=== PATIENT | male | born 1950 | race Caucasian/White ===

== ENCOUNTER → 2016-12-28 | Outpatient (CLI) | payer BC ==
[~2016-12-28] MED LIST: ARTHITIS MED; FERR1TAB14 PO; HYDR-906 PO; LISI-313 PO; NAPR1TAB PO; RIVA15TA PO; RIVA20TA PO; VIT1CAPS10 PO; VITA1CAP PO; [UNRECOGNIZED DRUG - CODE] PO; [UNRECOGNIZED DRUG - CODE] PO
[2016-12-28 11:29] LABS: BASOPHILS % 0.5 % (0.0-2.0); EOSINOPHILS # 0.1 10^3/ul (0.0-0.5); EOSINOPHILS % 1.9 % (0.0-7.0); HEMATOCRIT 37.3 % (42.0-52.0); HEMOGLOBIN 12.4 g/dl (14.0-18.0); LYMPHOCYTES # 1.7 10^3/ul (0.8-2.9); LYMPHOCYTES % 26.5 % (15.0-51.0); MEAN CORPUSCULAR HEMOGLOBIN 27.9 pg (29.0-33.0); MEAN CORPUSCULAR HGB CONC 33.2 g/dl (32.0-37.0); MEAN CORPUSCULAR VOLUME 83.8 fl (82.0-101.0); MEAN PLATELET VOLUME 10.7 fl (7.4-10.4); MONOCYTE # 0.9 10^3/ul (0.3-0.9); MONOCYTES % 13.9 % (0.0-11.0); NEUTROPHIL # 3.6 10^3/ul (1.6-7.5); NEUTROPHILS % 56.9 % (39.0-77.0); PLATELET COUNT 184 10^3/UL (140-415); RED BLOOD COUNT 4.45 10^6/ul (4.70-6.10); RED CELL DISTRIBUTION WIDTH 15.8 % (11.5-14.5); WHITE BLOOD COUNT 6.3 10^3/ul (4.8-10.8)
[2016-12-28 11:38] LABS: ADD UMIC YES; UR ASCORBIC ACID NEGATIVE (NEGATIVE); UR BILIRUBIN (Dip) NEGATIVE (NEGATIVE); UR BLOOD (Dip) 1+ mg/dL (NEGATIVE); UR CLARITY CLEAR (CLEAR); UR COLOR AMBER (YELLOW); UR GLUCOSE (Dip) NEGATIVE (NEGATIVE); UR KETONES (Dip) NEGATIVE (NEGATIVE); UR LEUKOCYTE ESTERASE (Dip) NEGATIVE Leu/ul (NEGATIVE); UR NITRITE (Dip) NEGATIVE (NEGATIVE); UR RBC 23 /HPF (0-5); UR SPECIFIC GRAVITY (Dip) 1.019 (1.003-1.030); UR TOTAL PROTEIN (Dip) 2+ mg/dl (NEGATIVE); UR UROBILINOGEN (Dip) 1+ mg/dL (NEGATIVE)
[2016-12-28 11:47] LABS: IRON 49 ug/dl (35-150)
[2016-12-28 11:57] LABS: TOTAL IRON BINDING CAPACITY 396 ug/dl (241-421)
[2016-12-28 12:45] LABS: PROSTATE SPECIFIC ANTIGEN 0.8 ng/ml (0.0-4.0)
[2016-12-28 12:49] LABS: FERRITIN 12.5 ng/ml (11.1-264.0)
[2016-12-28 13:07] LABS: ALANINE AMINOTRANSFERASE 35 IU/L (13-69); ALBUMIN/GLOBULIN RATIO 1.14; ALKALINE PHOSPHATASE 72 IU/L (42-121); ANION GAP 16 (8-16); ASPARTATE AMINO TRANSFERASE 29 IU/L (15-46); BILIRUBIN,INDIRECT 0.8 mg/dl (0-1.1); BILIRUBIN,TOTAL 0.8 mg/dl (0.2-1.3); BLOOD UREA NITROGEN 9 mg/dl (7-20); CALCIUM 9.3 mg/dl (8.4-10.2); CARBON DIOXIDE 28 mmol/L (21-31); CHLORIDE 104 mmol/L (97-110); CHOL/HDL RATIO 2.9 RATIO; CHOLESTEROL 167 mg/dl (100-200); CREATININE 0.75 mg/dl (0.61-1.24); GLUCOSE 124 mg/dl (70-220); HDL CHOLESTEROL 57 mg/dl (30-78); POTASSIUM 3.9 mmol/L (3.5-5.1); SODIUM 144 mmol/L (135-144); TOTAL PROTEIN 7.5 g/dl (6.1-8.1); TRIGLYCERIDES 74 mg/dl (0-149)
[2016-12-28 13:20] LABS: FOLATE > 20.0 ng/ml (2.8-20.0)
== END | disposition home or self-care (01) ==
LOC: LAB 11:02
PROVIDERS: ATTEND General Practice
DX: Z00.00 Encounter for general adult medical examination without abnormal findings (principal)
CPT/HCPCS: 80053; 80061; 81001; 82728; 82746; 83540; 84153; 84154; 84436; 84443; 84560; 85025

== ENCOUNTER 2016-12-29 20:27 | Inpatient (IN) | payer BC ==
[~2016-12-29] VITALS: Ht 162.6 cm; Wt 123.2 kg
[~2016-12-29 20:27] MED LIST changes: -FERR1TAB14 PO; -HYDR-906 PO; -LISI-313 PO; -RIVA15TA PO; -RIVA20TA PO
[2016-12-29 20:38] VITALS: Ht 162.6 cm; Wt 123.2 kg
--- NOTE | 2016-12-29 21:01 | ERD ---
ER Documentation Chief Complaint Chief Complaint R ankle pain/swelling since sun (hx of vein insufficiency) code green pt (JACQUELIN PARKS) HPI 66-year-old male who presents emergency department for right ankle pain and swelling since Sunday. Stated that his history of vein insufficiency. On triage, states code green. Added that he has right calf tenderness and tenderness to right ankle and right foot. Denies any headache, dizziness, blurry vision, neck pain, shoulder pain, chest pain, difficulty breathing when lying flat, coughing, abdominal pain, nausea, vomiting, constipation, diarrhea, loss of bowel bladder control, urinary symptoms, recent long travel, recent travel, recent exposure to any illness, recent antibiotic use in the last 3 months, numbness or tingling sensation, fever, chills. No known drug allergies. No past medical history. No surgeries. Does not take any prescription medication at home. Social: Works at [employer]. Occasional drinks alcoholic beverages. Denies smoking cigarettes, use of illegal drugs. (JACQUELIN PARKS) ROS All systems reviewed and are negative except as per history of present illness. (JACQUELIN PARKS) Medications Home Meds Reported Medications Naproxen/Esomeprazole Mag (Vimovo 500-20 Mg Tablet) 1 Each Tbmp.12hr, 1 EACH PO NEEDED 06/16/11 [Arthitis Med] No Conflict Check 05/03/11 Multivits W-Fe,Other Min (Central Omid For Seniors) 1 Tab Tablet, 1 TAB PO DAILY 05/03/11 Vitamin E Acetate (E-400) 400 Unit Capsule, 400 UNIT PO DAILY 05/03/11 Vitamin B Complex (B Complex) 1 Cap Capsule, 1 CAP PO DAILY 05/03/11 Vit A/Vit C/Vit E/Zinc/Copper (Preservision Areds Softgel) 1 Cap Capsule, 1 CAP PO 05/03/11 Allergies Allergies: Coded Allergies: No Known Allergies (Verified Allergy, Unknown, 09/28/15) PMhx/Soc Medical and Surgical Hx: pt denies Medical Hx History of Surgery: Yes (PT HAS RIGHT EYE SURGERY) Anesthesia Reaction: No Hx Neurological Disorder: No Hx Respiratory Disorders: No Hx Cardiac Disorders: No Hx Psychiatric Problems: No Hx Miscellaneous Medical Probl: No Hx Alcohol Use: No Hx Substance Use: No Hx Tobacco Use: No (JACQUELIN PARKS) Physical Exam Vitals Vital Signs Date Time Temp Pulse Resp B/P Pulse Ox O2 Delivery O2 Flow Rate FiO2 12/30/16 02:34 98.1 67 19 169/98 98 Room Air 12/29/16 23:03 99.3 69 20 159/84 96 Room Air 12/29/16 20:38 98.2 74 20 181/84 98 (RANDY HOLMAN DO) Physical Exam Const: [] Head: Atraumatic Eyes: Normal Conjunctiva ENT: Normal External Ears, Nose and Mouth. Neck: Full range of motion..~ No meningismus. Resp: Clear to auscultation bilaterally Cardio: Regular rate and rhythm, no murmurs Abd: Soft, non tender, non distended. Normal bowel sounds Skin: No petechiae or rashes Back: No midline or flank tenderness Ext: No cyanosis, or edema. Left lower extremity unremarkable. Right lower extremity: Right knee is no obvious deformity/swelling/tenderness/ discoloration. Right calf is swollen that extends down to right ankle and right foot. Right calf is tender to palpation. Right ankle has no deformity but has tenderness to palpation. Nonpitting edema on right lower extremity. Pedal pulse is good. Circulation and sensation is intact. Patient ambulated to the bathroom without difficulty. Neur: Awake and alert Psych: Normal Mood and Affect (JACQUELIN PARKS) Result Diagram: 01/01/1742801/01/17428 Results 24 hrs Laboratory Tests Test 12/29/16 21:10 White Blood Count 7.610^3/ul Red Blood Count 4.1510^6/ul Hemoglobin 11.7g/dl Hematocrit 34.8% Mean Corpuscular Volume 83.9fl Mean Corpuscular Hemoglobin 28.2pg Mean Corpuscular Hemoglobin Concent 33.6g/dl Red Cell Distribution Width 15.5% Platelet Count 45947^3/UL Mean Platelet Volume 10.2fl Neutrophils % 50.9% Lymphocytes % 31.8% Monocytes % 13.7% Eosinophils % 2.9% Basophils % 0.4% Nucleated Red Blood Cells % 0.0/100WBC Neutrophils # 3.910^3/ul Lymphocytes # 2.410^3/ul Monocytes # 1.010^3/ul Eosinophils # 0.210^3/ul Basophils # 0.010^3/ul Nucleated Red Blood Cells # 0.010^3/ul Prothrombin Time 13.0Sec Prothrombin Time Ratio 1.0 INR International Normalized Ratio 0.98 Activated Partial Thromboplast Time 30.3Sec D-Dimer 6883.77ng/ml D-Dimer Comment Sodium Level 143mmol/L Potassium Level 3.6mmol/L Chloride Level 103mmol/L Carbon Dioxide Level 27mmol/L Anion Gap 17 Blood Urea Nitrogen 16mg/dl Creatinine 0.83mg/dl Glucose Level 112mg/dl Calcium Level 9.1mg/dl Total Bilirubin 0.5mg/dl Direct Bilirubin 0.00mg/dl Indirect Bilirubin 0.5mg/dl Aspartate Amino Transf (AST/SGOT) 32IU/L Alanine Aminotransferase (ALT/SGPT) 38IU/L Alkaline Phosphatase 68IU/L Troponin I < 0.012ng/ml B-Type Natriuretic Peptide 178PG/ML Total Protein 7.4g/dl Albumin 3.9g/dl Globulin 3.50g/dl Albumin/Globulin Ratio 1.11 Current Medications Medications (Trade) Dose Ordered Sig/Aaron Route PRN Reason Start Time Stop Time Status Last Admin Dose Admin Acetaminophen/ Hydrocodone Bitart ([place] (10325)) 1 tab ONCE ONCE PO 12/29/16 22:00 12/29/16 22:01 DC 12/29/16 22:09 Enoxaparin Sodium (Lovenox) 77 mg ONCE SC 12/29/16 22:30 12/30/16 13:23 DC 12/29/16 22:55 Ondansetron HCl (Zofran Inj) 4 mg BRIDGE ORDER PRN IV NAUSEA AND/OR VOMITING 12/30/16 03:00 12/30/16 13:14 DC Acetaminophen (Tylenol Tab) 650 mg ER BRIDGE PRN PO MILD PAIN/FEVER 12/30/16 03:00 12/30/16 13:14 DC (RANDY HOLMAN DO) Procedures/MDM 66-year-old male who presents emergency department for right ankle pain and swelling since Sunday. Stated that his history of vein insufficiency. On triage, states code green. Added that he has right calf tenderness and tenderness to right ankle and right foot. Denies any headache, dizziness, blurry vision, neck pain, shoulder pain, chest pain, difficulty breathing when lying flat, coughing, abdominal pain, nausea, vomiting, constipation, diarrhea, loss of bowel bladder control, urinary symptoms, recent long travel, recent travel, recent exposure to any illness, recent antibiotic use in the last 3 months, numbness or tingling sensation, fever, chills. No known drug allergies. No past medical history. No surgeries. Does not take any prescription medication at home. Social: Works at [employer]. Occasional drinks alcoholic beverages. Denies smoking cigarettes, use of illegal drugs. Physical exam: Lung sounds are clear to auscultation. Regular rate and rhythm of the heart. Left lower extremity unremarkable. Right lower extremity: Right knee is no obvious deformity/swelling/tenderness/discoloration. Right calf is swollen that extends down to right ankle and right foot. Right calf is tender to palpation. Right ankle has no deformity but has tenderness to palpation. Nonpitting edema on right lower extremity. Pedal pulse is good. Circulation and sensation is intact. No active bleeding. Patient ambulated to the bathroom without difficulty. Patient agreed with the diagnostic test, treatment, plan of care. Venous Doppler ultrasound of the right lower extremity: Positive for DVT with thrombus extending from the proximal superficial femoral vein into the calf. This result was relayed to me by Dr. Juanjose Moctezuma, radiologist. Blood works: Reviewed. Treatment: [place] p.o. IV insertion. Telemetry/cardiac monitoring. Lovenox EKG: Normal sinus rhythm with ventricular rate of 70 bpm. No STEMI. Differential diagnosis: DVT versus thrombophlebitis versus cellulitis versus fracture versus contusion versus sprain versus dependent edema Final diagnosis: DVT Case was discussed with emergency room supervising physician, Dr. Randy Holman who agreed in my medical decision making to admit the patient. He also stated that he will process the admission. (JACQUELIN PARKS) This patient has an unprovoked extensive DVT. I believe he needs to be admitted for a vascular and possibly a hematology eval as well as initiation of proper treatment. He was given lovenox in ER. I spoke with Dr. Burnett who will be admitting. (RANDY HOLMAN DO) Departure Diagnosis: Primary Impression: DVT, lower extremity Condition: Stable JACQUELIN PARKS Dec 29, 2016 21:01 RANDY HOLMAN DO Jan 01, 2017 09:08
[2016-12-29 21:21] LABS: BASOPHILS % 0.4 % (0.0-2.0); EOSINOPHILS # 0.2 10^3/ul (0.0-0.5); EOSINOPHILS % 2.9 % (0.0-7.0); HEMATOCRIT 34.8 % (42.0-52.0); HEMOGLOBIN 11.7 g/dl (14.0-18.0); LYMPHOCYTES # 2.4 10^3/ul (0.8-2.9); LYMPHOCYTES % 31.8 % (15.0-51.0); MEAN CORPUSCULAR HEMOGLOBIN 28.2 pg (29.0-33.0); MEAN CORPUSCULAR HGB CONC 33.6 g/dl (32.0-37.0); MEAN CORPUSCULAR VOLUME 83.9 fl (82.0-101.0); MEAN PLATELET VOLUME 10.2 fl (7.4-10.4); MONOCYTES % 13.7 % (0.0-11.0); NEUTROPHIL # 3.9 10^3/ul (1.6-7.5); NEUTROPHILS % 50.9 % (39.0-77.0); PLATELET COUNT 173 10^3/UL (140-415); RED BLOOD COUNT 4.15 10^6/ul (4.70-6.10); RED CELL DISTRIBUTION WIDTH 15.5 % (11.5-14.5); WHITE BLOOD COUNT 7.6 10^3/ul (4.8-10.8)
[2016-12-29 21:35] LABS: INR 0.98
[2016-12-29 21:36] LABS: PARTIAL THROMBOPLASTIN TIME 30.3 Sec (25.0-35.0)
[2016-12-29 21:40] LABS: ALANINE AMINOTRANSFERASE 38 IU/L (13-69); ALBUMIN 3.9 g/dl (3.3-4.9); ALBUMIN/GLOBULIN RATIO 1.11; ALKALINE PHOSPHATASE 68 IU/L (42-121); ANION GAP 17 (8-16); ASPARTATE AMINO TRANSFERASE 32 IU/L (15-46); BILIRUBIN,INDIRECT 0.5 mg/dl (0-1.1); BILIRUBIN,TOTAL 0.5 mg/dl (0.2-1.3); BLOOD UREA NITROGEN 16 mg/dl (7-20); CALCIUM 9.1 mg/dl (8.4-10.2); CARBON DIOXIDE 27 mmol/L (21-31); CHLORIDE 103 mmol/L (97-110); CREATININE 0.83 mg/dl (0.61-1.24); GLUCOSE 112 mg/dl (70-220); POTASSIUM 3.6 mmol/L (3.5-5.1); SODIUM 143 mmol/L (135-144); TOTAL PROTEIN 7.4 g/dl (6.1-8.1)
--- NOTE | 2016-12-29 21:47 | RADRPT ---
PROCEDURE: US venous right lower extremity CLINICAL INDICATION: Right lower extremity swelling. TECHNIQUE: Multiple longitudinal and transverse images of the right lower extremity veins were obta ined with solis scale and color Doppler imaging. The calf veins were interrogated as well. COMPARISON: None available. FINDINGS: Common femoral vein: Normal flow. Compressible and augmentable. Proximal superficial femoral vein: Partially occlusive thrombus. Mid superficial femoral vein: Partially occlusive thrombus. Distal superficial femoral vein: Partially occlusive thrombus. Popliteal vein: Occlusive thrombus. Calf veins: Partially occlusive thrombus. IMPRESSION: 1. Positive for DVT with thrombus extending from the proximal superficial femoral vein into the ca lf. CRITICAL RESULTS: These findings discussed with Faiza Figueroa in the ED at 2144 hours on 12/29/2016 . RPTAT: HLBP .Juanjose Moctezuma MD, Date Time Electronically viewed and signed by .Juanjose Moctezuma MD, on 12/29/2016 21:47 .P/
[2016-12-29 21:51] LABS: B-TYPE NATRIURETIC PEPTIDE 178 PG/ML (0-125)
[2016-12-29 21:54] LABS: TROPONIN-I < 0.012 ng/ml (0.00-0.12)
[2016-12-29] MEDS ORDERED: HYDROCODONE/APAP (10/325) TAB PO ONE (22:00)
[2016-12-29 22:13] LABS: D-DIMER 6883.77 ng/ml (<460)
[2016-12-29] MEDS ORDERED: ENOXAPARIN 100 MG/ML SYG SC SCH (22:30)
[2016-12-30 02:34] VITALS: TEMP 98.1
[2016-12-30] MEDS ORDERED: ACETAMINOPHEN 325 MG TAB PO PRN ×2 (03:00→04:00)
[2016-12-30] MEDS ORDERED: ONDANSETRON 4 MG INJ IV PRN ×2 (03:00→04:00)
--- NOTE | 2016-12-30 03:59 | HP ---
Date/Time of Note Date/Time of Note DATE: 12/30/16 TIME: 03:42 Assessment/Plan VTE Prophylaxis VTE Prophylaxis Intervention: LMWH Assessment/Plan Chief Complaint/Hosp Course This is a 66-year-old male being admitted to the [facility] floor for: #1 acute DVT: Ultrasound positive for DVT of the superficial femoral vein extending to the calf. At the current time will start the patient on Lovenox subcu 1 mg/kg twice daily. Due to the extent of the clot, we will consult vascular surgery for any further recommendations. This has been his first DVT. He does state that his mother has a history of clots. Consider ordering Coagulation studies as an outpatient once his treatment is completed. We will need to discuss with vascular surgery and/or hematology regarding anticoagulation treatment at home with either Coumadin or NOAC. #2 elevated blood pressure: We will monitor blood pressures to assess for undiagnosed hypertension. At the current time will provide as needed hydralazine for systolic blood pressure greater than 180. #3 BMI 29.2: Check A1c, TSH, lipid panel #4DVT and GI prophylaxis: Lovenox, no GI prophylaxis indicated Further treatment strategy will be provided as per the clinical course Problems: HPI/ROS Admit Date/Time Admit Date/Time Hx of Present Illness Chief complaint: Right leg pain This is a 66-year-old male who presents emergency department for right ankle pain and swelling since Sunday. Today while at work at [employer] he had pain in his leg and snow marie was called. He states that he has pain from his calf down to his ankle. He denies any numbness or tingling. Denies any cyanosis of his toes. He denies any recent travel or recent surgeries. Of note patient states that his mother does have a history of blood clots as well. Patient has not had a blood clot before in his life. Denies any headache, dizziness, blurry vision, neck pain, shoulder pain, chest pain, difficulty breathing when lying flat, coughing, abdominal pain, nausea, vomiting, constipation, diarrhea, loss of bowel bladder control, urinary symptoms, recent long travel, recent travel, recent exposure to any illness, recent antibiotic use in the last 3 months, numbness or tingling sensation, fever, chills. Allergies: NKDA Medications: See DICKSON ROS Const: As per HPI Eyes : No pain discharge or redness or change in visual acuity ENT: No pain, sore throat, congestion, congestion, dysphagia or discharge Respiratory: No shortness of breath, cough, sputum, wheezing, or pleuritic pain Cardiovascular: No chest pain, palpitation, PND, or edema GI : no change in appetite, abdominal pain, nausea, vomiting, diarrhea, constipation, or change in the color his stool Genitourinary: No dysuria, hematuria, flank pain , discharge or CVA tenderness Musculoskeletal: As per HPI Skin: No rash, bruising or hives Neuro: No headache, dizziness, syncope, seizure, focal weakness Endocrine: No polyuria, polydipsia, temperature intolerance Psych: No hallucination, depression, anxiety or suicidal ideation PMH/Family/Social Past Medical History Medical History: no pertinent history Past Surgical History Right cataract surgery Family History Significant Family History: other (Blood clots: Mother) Social History Alcohol Use: occasionally Smoking Status: Never smoker Drug Use: none Exam/Review of Systems Vital Signs Vitals Vital Signs Date Time Temp Pulse Resp B/P Pulse Ox O2 Delivery O2 Flow Rate FiO2 12/30/16 02:34 98.1 67 19 169/98 98 Room Air Exam Exam General: Is a well-developed male lying in bed in no acute distress HEENT: Atraumatic, normocephalic. The pupils are equal, round and reactive. Extraocular motor are intact Neck: Supple with full range of motion. No rigidity or meningismus Chest: Nontender Lungs: Clear to auscultation bilaterally no crackles rales or wheezing Heart: Normal S1-S2, Regular rhythm and rate. No murmur, S3, or S4 Abdomen: Soft , nontender, nondistended , bowel sounds are present. No guarding no rebound tenderness , No masses or organomegaly. No costovertebral temporal angle mass Extremities: Mild swelling of the right lower extremity, tenderness to palpation of the right calf and ankle, mild erythema noted at the medial ankle area Neurologic: Normal mental status, speech normal, cranial nerves II through XII are intact, motor and sensory are intact, no focal weakness Vascular: 2+ DP pulses bilateral lower extremities Additional Comments PROCEDURE: US venous right lower extremity CLINICAL INDICATION: Right lower extremity swelling. TECHNIQUE: Multiple longitudinal and transverse images of the right lower extremity veins were obtained with solis scale and color Doppler imaging. The calf veins were interrogated as well. COMPARISON: None available. FINDINGS: Common femoral vein: Normal flow. Compressible and augmentable. Proximal superficial femoral vein: Partially occlusive thrombus. Mid superficial femoral vein: Partially occlusive thrombus. Distal superficial femoral vein: Partially occlusive thrombus. Popliteal vein: Occlusive thrombus. Calf veins: Partially occlusive thrombus. IMPRESSION: 1. Positive for DVT with thrombus extending from the proximal superficial femoral vein into the calf. CRITICAL RESULTS: These findings discussed with Jacquelin Figueroa in the ED at 2144 hours on 12/29/2016. RPTAT: HLBP .Juanjose Moctezuma MD, Date Time Electronically viewed and signed by .Juanjose Moctezuma MD, on 12/29/2016 21:47 .P/ CC: JACQUELIN FIGUEROA Labs Result Diagram: 12/29/16210912/29/162109 Medications Medications Current Medications Enoxaparin Sodium (Lovenox) 77 mg ONCE SC Last administered on 12/29/16t 22:55 ; Admin Dose 77 MG; Start 12/29/16 at 22:30 NATHALIA LOTT Dec 30, 2016 03:58
[2016-12-30] MEDS ORDERED: DOCUSATE SODIUM 100 MG CAP PO PRN (04:00)
[2016-12-30] MEDS ORDERED: HYDROCODONE/APAP (5/325) TAB PO PRN (04:00)
[2016-12-30] MEDS ORDERED: NACL 0.9% 3 ML SYG IV SCH (04:00)
[2016-12-30] MEDS ORDERED: BISACODYL (EC) 5 MG TAB PO PRN (04:00)
[2016-12-30 04:33] VITALS: PULSE 65
[2016-12-30 05:36] VITALS: BP 156/75; RESP 20
[2016-12-30 06:23] LABS: BASOPHILS % 0.3 % (0.0-2.0); EOSINOPHILS # 0.2 10^3/ul (0.0-0.5); EOSINOPHILS % 2.9 % (0.0-7.0); HEMATOCRIT 34.2 % (42.0-52.0); LYMPHOCYTES # 2.3 10^3/ul (0.8-2.9); LYMPHOCYTES % 29.6 % (15.0-51.0); MEAN CORPUSCULAR HGB CONC 32.2 g/dl (32.0-37.0); MEAN PLATELET VOLUME 10.8 fl (7.4-10.4); MONOCYTE # 0.9 10^3/ul (0.3-0.9); NEUTROPHIL # 4.2 10^3/ul (1.6-7.5); NEUTROPHILS % 54.9 % (39.0-77.0); PLATELET COUNT 174 10^3/UL (140-415); RED BLOOD COUNT 4.07 10^6/ul (4.70-6.10); RED CELL DISTRIBUTION WIDTH 15.5 % (11.5-14.5); WHITE BLOOD COUNT 7.7 10^3/ul (4.8-10.8)
[2016-12-30 06:54] LABS: IRON 31 ug/dl (35-150)
[2016-12-30 07:04] LABS: TOTAL IRON BINDING CAPACITY 384 ug/dl (241-421)
[2016-12-30 07:37] LABS: ALBUMIN 3.6 g/dl (3.3-4.9); ALBUMIN/GLOBULIN RATIO 1.02; BILIRUBIN,INDIRECT 0.5 mg/dl (0-1.1); BILIRUBIN,TOTAL 0.5 mg/dl (0.2-1.3); CALCIUM 8.8 mg/dl (8.4-10.2); CHOL/HDL RATIO 3.3 RATIO; CREATININE 0.75 mg/dl (0.61-1.24); MAGNESIUM 1.3 mg/dl (1.7-2.5); POTASSIUM 3.4 mmol/L (3.5-5.1); TOTAL PROTEIN 7.1 g/dl (6.1-8.1)
[2016-12-30 08:03] VITALS: BP 161/89; RESP 18
[2016-12-30] MEDS: ENOXAPARIN 80 MG/0.8 ML SYG SC SCH ×2 (09:45→22:15)
[2016-12-30] MEDS ORDERED: MAGNESIUM SULFATE 3 GM in DEXTROSE 5% 100 ML IVPB ONE (12:30)
[2016-12-30] MEDS ORDERED: POTASSIUM CHLORIDE (SR) 10 MEQ TAB PO ONE (12:30)
--- NOTE | 2016-12-30 13:41 | CONS ---
DATE OF ADMISSION: 12/30/2016 DATE OF CONSULTATION: 12/30/2016 VASCULAR SURGERY CONSULTATION Dear Doctors: Mr. Jc is a 66-year-old gentleman who presented to [facility] ry to having right lower extremity swelling, discomfort and pain over the past 7 to 8 days. The pat jose ramon is actually an employee of [employer], works in [employer] and which, over the past week, had identified patient having onsets of significant swelling of the lower leg and nu mbness and tingling and discomfort that had been gradually getting worse up until yesterday. The pa bhargavi has not had any changes to his recent activities. He is quite active with his [employer] or[employer] and at home. He has not changed any of the ordinary activities that he is involved with. Furth er, the patient has not had any recent travels or prolonged airplane flight or car drive. The patie nt, when speaking with him, mentions that his mom does have history of varicose veins and some swell ing of her lower extremities; however, no thrombotic syndrome that he can recall. The patient denies history of smoking and denies any of his children with any of the similar finding s. At the moment, the patient denies shortness of breath, chest pain, nausea, vomiting, fever or ch ills. Patient does have some right lower extremity discomfort secondary to swelling. Otherwise, de nies claudication or rest pain. REVIEW OF SYSTEMS: A 14-point review performed and negative, except what is mentioned in the HPI. PAST MEDICAL HISTORY: Entails morbidly obese with BMI of 46.9, hypertension. PAST SURGICAL HISTORY: Right cataract surgery. FAMILY HISTORY: Mom has history of varicose veins and some blood clots. SOCIAL HISTORY: Denies tobacco, alcohol or illicit drug use. He does have some social alcohol use. PHYSICAL EXAMINATION: GENERAL: Alert and oriented x3, no apparent distress. HEENT: Normocephalic, atraumatic. PERRLA, EOMI. Mucosa moist. NECK: Supple. No carotid bruit. PULMONARY: Clear to auscultation bilaterally. No crackles. CARDIOVASCULAR: S1, S2 present. No murmurs. ABDOMEN: Soft, nontender, nondistended. Bowel sounds positive. Large truncal obesity. RIGHT LOWER EXTREMITY: Palpable femoral pulse, faint pedal pulse. Motor, sensory intact. Cap refi ll 2 to 3 seconds. Edema from the ankle all the way up to the knee of about 2+. LEFT LOWER EXTREMITY: Palpable femoral pulse, palpable pedal pulse. Motor, sensory intact. Cap re fill 2 to 3 seconds. BILATERAL LOWER EXTREMITIES: Presence of bilateral lower legs varicose veins. ASSESSMENT AND PLAN: 1. Right lower extremity deep vein thrombosis of the superficial femoral vein and his tibial veins: It seems the patient has developed an unprovoked event of lower extremity deep vein thrombosis. T his seems to be requiring further workup as the patient does have some history of varicose veins and swelling from his mother's side that could suggest possible thrombotic syndrome. Further, as no re al indication of a provoked event, would recommend for the patient to have blood work done and hemat ology consult for further evaluation. We also would like to rule out any sort of a neoplasm that th e patient may have gone undiagnosed. He did mention that he did have a colonoscopy about 2 years ag o, which was negative. 2. Continue with anticoagulation, Lovenox b.i.d. 3. Optimize vascular status (blood pressure meds, diet, nutrition, exercise, sugar control, antipla telets). 4. Discussed with the patient about diet, nutrition, his BMI and weight loss program and appropriat e information was provided. 5. Discussed findings, plan and management with the patient and at the bedside with a certifie d land leveler and they understand. Thank you for allowing us to partake in the care of your patient. Please call with any questions. Dictated By: JAMES DUBON/DIANA Conf#: [id number] DID#: [id number] CC: NATHALIA LOTT MD;*EndCC*
[2016-12-30 14:36] VITALS: BP 155/80; RESP 20
[2016-12-30 19:40] VITALS: BP 145/81; RESP 18
[2016-12-31 02:21] VITALS: BP 143/74; RESP 18
[2016-12-31 05:14] LABS: BASOPHILS % 0.3 % (0.0-2.0); EOSINOPHILS # 0.2 10^3/ul (0.0-0.5); EOSINOPHILS % 3.5 % (0.0-7.0); HEMATOCRIT 35.3 % (42.0-52.0); HEMOGLOBIN 11.7 g/dl (14.0-18.0); LYMPHOCYTES % 32.5 % (15.0-51.0); MEAN CORPUSCULAR HEMOGLOBIN 27.8 pg (29.0-33.0); MEAN CORPUSCULAR HGB CONC 33.1 g/dl (32.0-37.0); MEAN CORPUSCULAR VOLUME 83.8 fl (82.0-101.0); MEAN PLATELET VOLUME 10.7 fl (7.4-10.4); MONOCYTE # 0.9 10^3/ul (0.3-0.9); MONOCYTES % 14.1 % (0.0-11.0); NEUTROPHILS % 49.4 % (39.0-77.0); PLATELET COUNT 207 10^3/UL (140-415); RED BLOOD COUNT 4.21 10^6/ul (4.70-6.10); RED CELL DISTRIBUTION WIDTH 15.8 % (11.5-14.5)
[2016-12-31 05:28] LABS: MAGNESIUM 1.6 mg/dl (1.7-2.5); PHOSPHORUS 3.5 mg/dl (2.5-4.9)
[2016-12-31 05:29] LABS: CALCIUM 9.1 mg/dl (8.4-10.2); CREATININE 0.75 mg/dl (0.61-1.24); POTASSIUM 3.6 mmol/L (3.5-5.1)
[2016-12-31 07:50] VITALS: BP 142/78; RESP 18
[2016-12-31] MEDS: LISINOPRIL 5 MG TAB PO SCH (09:56)
[2016-12-31] MEDS: ENOXAPARIN 80 MG/0.8 ML SYG SC SCH (10:00)
--- NOTE | 2016-12-31 10:53 | PN ---
Date/Time of Note Date/Time of Note DATE: 12/31/16 TIME: 10:50 Assessment/Plan VTE Prophylaxis VTE Prophylaxis Intervention: LMWH Lines/Catheters IV C[facility]ter Type (from [facility]): Peripheral IV Urinary Cath still in place: No Assessment/Plan Chief Complaint/Hosp Course 1. DVT with thrombus extending from the proximal superficial vein into the calf. DVT is unprovoked. The patient on therapeutic anticoagulation. The patient being followed by vascular surgery. At the patient being evaluated for hypercoagulable state. Hematology consult has been called. 2. Hypertension. The patient was started on low-dose MARY inhibitors specifically since the patient has evidence of prediabetes with a hemoglobin A1c of 6.2. Urinalysis will be sent to evaluate for any underlying microscopic proteinuria. 3. Prediabetes. Low carbohydrate diet advised. Random blood sugars within normal limits. 4. Iron deficiency. Start iron supplements. 5. Morbid obesity. Weight reduction advised. Dietary consult. 6. Fluids, electrolytes, and nutrition. Regular diet. 7. DVT prophylaxis. On therapeutic Lovenox. 8. Plan. Continue therapeutic anticoagulation. Await further recommendations from vascular surgery. Await hematology evaluation. Case discussed with . Problems: Subjective 24 Hr Interval Summary Free Text/Dictation Right lower extremity pain well controlled. Denies any dyspnea. Exam/Review of Systems Vital Signs Vitals Vital Signs Date Time Temp Pulse Resp B/P Pulse Ox O2 Delivery O2 Flow Rate FiO2 12/31/16 07:50 98.5 76 18 142/78 95 12/30/16 04:33 Room Air Intake and Output 12/30/16 12/30/16 12/31/16 15:00 23:00 07:00 Intake Total 1206 ml 750 ml Output Total 985 ml Balance 1206 ml -235 ml Exam General: Morbidly obese 66 year-old male lying in bed in no apparent distress. HEENT: Normocephalic, atraumatic. Eyes: Anicteric sclerae, conjunctivae clear. ENT: Nasal septum midline, oral mucosa moist. Neck supple, no JVD noticed. Respiratory: Bilaterally clear breath sounds. No use of accessory muscles of respiration. No adventitious breath sounds. Cardiovascular: S1, S2 heard. Regular rate and rhythm. Abdomen: Soft, nontender, and nondistended. Bowel sounds positive in all 4 quadrants. Genitourinary: Deferred. Extremities: No cyanosis, no clubbing. Peripheral pulses palpable. Right lower extremity edema with tenderness to touch. Neurologic: Cranial nerves II through XII grossly intact. The patient is awake, alert, and oriented. Results Result Diagram: 12/31/166 12/31/16 0446 Results 24 hrs Laboratory Tests Test 12/31/16 04:46 White Blood Count 6.0 # Red Blood Count 4.21 L Hemoglobin 11.7 L Hematocrit 35.3 L Mean Corpuscular Volume 83.8 Mean Corpuscular Hemoglobin 27.8 L Mean Corpuscular Hemoglobin Concent 33.1 Red Cell Distribution Width 15.8 H Platelet Count 207 Mean Platelet Volume 10.7 H Neutrophils % 49.4 Lymphocytes % 32.5 Monocytes % 14.1 H Eosinophils % 3.5 Basophils % 0.3 Nucleated Red Blood Cells % 0.0 Neutrophils # 3.0 Lymphocytes # 2.0 Monocytes # 0.9 Eosinophils # 0.2 Basophils # 0.0 Nucleated Red Blood Cells # 0.0 Sodium Level 140 Potassium Level 3.6 Chloride Level 102 Carbon Dioxide Level 33 H Anion Gap 9 Blood Urea Nitrogen 11 Creatinine 0.75 Glucose Level 108 Calcium Level 9.1 Phosphorus Level 3.5 Magnesium Level 1.6 L Thyroid Stimulating Hormone (TSH) 0.540 Free Thyroxine 1.01 Medications Medications Current Medications Ondansetron HCl (Zofran Inj) 4 mg Q6H PRN IV NAUSEA AND/OR VOMITING; Start at 04:00 Acetaminophen (Tylenol Tab) 650 mg Q6H PRN PO PAIN LEVEL 1-3 OR FEVER; Start 12/30/16 at 04:00 Acetaminophen/ Hydrocodone Bitart ([place] (5/325)) 1 tab Q6H PRN PO MODERATE PAIN LEVEL 4-6 Last administered on 12/31/16t 10:02; Admin Dose 1 TAB; Start 12/30/16 at 04:00 Docusate Sodium (Colace) 100 mg Q12H PRN PO CONSTIPATION; Start 12/30/16 at 04 :00 Bisacodyl (Dulcolax) 5 mg DAILY PRN PO CONSTIPATION; Start 12/30/16 at 04:00 Hydralazine HCl (Apresoline) 25 mg Q8H PRN PO ELEVATED SYSTOLIC BP; Start at 04:00 Enoxaparin Sodium (Lovenox) 75 mg Q12 SC Last administered on 12/31/16 10:00 ; Admin Dose 75 MG; Start 12/30/16 at 09:00 Lisinopril 5 mg 5 mg DAILY PO Last administered on 12/31/16 09:56; Admin Dose 5 MG; Start 12/31/16 at 09:00 Magnesium Sulfate (Magnesium Sulfate 2 Gm/50 ml) 50 ml @ 25 mls/hr ONCE IVPB ; Start 12/31/16 at 12:00; Stop 12/31/16 at 13:59 Docusate Sodium/ Ferrous Fumarate (Nadia-Sequels) 1 tab BID PO ; Start at 12:00 CONRAD PRAKASH NP Dec 31, 2016 10:53
[2016-12-31] MEDS ORDERED: MAGNESIUM SULFATE 2 GM/50 ML 50 ML IVPB SCH (12:00)
--- NOTE | 2016-12-31 12:31 | CONS ---
Date/Time of Note Date/Time of Note DATE: 12/31/16 TIME: 12:25 Assessment/Plan Assessment/Plan Chief Complaint/Hosp Course unprovoked RLE DVT with thrombus extending from the proximal superficial vein into the calf on 12/29/16 doppler US. Normocytic anemia secondary iron deficiency , need to rule out other etiology Hypertension Prediabetes. Morbid obesity. Plans: Continue anticoagulation with lovenox. Discussed with patient regarding the oral anticoagulation options after discharge, risk and benefits were explained. Patient would like to start Xarelto or Eliquis instead of coumadin after discharge. unprovoked DVT . Hereditarily hypercoagulable state work up were placed. Anemia work up Stool OB (per patient, colonoscopy 2 years ago negative) U/A continue oral Iron supplement Follow up Vascular surgeon Other management per PMD. assistant media buyer was present. Long discussion with patient and families regarding medical condition and plans. Understood time spent on patient 70' Thank you for the consultation. will follow up. Problems: Consultation Date/Type/Reason Admit Date/Time Date of Consultation: Dec 31, 2016 Type of Consultation: Hematology and Oncology Reason for Consultation unprovoked DVT and anemia Hx of Present Illness a 66-year-old gentleman who presented to [facility] secondary to having right lower extremity swelling, discomfort and pain over the past 7 to 8 days. The patient is actually an employee of [employer] [employer], works in [employer] and which, over the past week, had identified patient having onsets of significant swelling of the lower leg and numbness and tingling and discomfort that had been gradually getting worse up until yesterday. The patient has not had any changes to his recent activities. He is quite active with his [employer] work and at home. He has not changed any of the ordinary activities that he is involved with. Further, the patient has not had any recent travels or prolonged airplane flight or car drive. The patient, when speaking with him, mentions that his mom does have history of varicose veins and some swelling of her lower extremities; however, no thrombotic syndrome that he can recall. The patient denies history of smoking and denies any of his children with any of the similar findings. At the moment, the patient denies shortness of breath , chest pain, nausea, vomiting, fever or chills. Patient does have some right lower extremity discomfort secondary to swelling. Otherwise, denies claudication or rest pain. 12/29/16 Doppler US of RLE: Positive for DVT with thrombus extending from the proximal superficial femoral vein into the calf. HgB 11.7 L, Iron saturation 8% L BM and urine normal. no weight loss hematology consult due to unprovoked DVT and anemia. Constitutional: No chills, No diaphoresis, No disoriented, No febrile, No improved, No no complaints, No other, No poor po, No requiring IVF, No requiring O2 Eyes: No discharge, No no complaints, No other, No pain, No redness, No visual change ENT: No bleeding, No congestion, No discharge, No dysphagia, No no complaints, No other, No pain, No sore throat Cardiovascular: No chest pain, No edema, No lightheadedness, No no complaints, No orthopenea, No other, No palpitations, No paroxysmal nocturnal dyspnea Gastrointestinal: No blood, No constipation, No decreased appetite, No diarrhea , No flatus, No nausea, No no complaints, No other, No pain, No passing stool, No vomiting Genitourinary: No bleeding, No discharge, No dysuria, No flank pain, No hematuria, No no complaints, No other Musculoskeletal: swelling (RLE) Neurologic: No confusion, No dizziness, No focal-weakness, No headache, No no complaints, No other, No seizure, No syncope Endocrine: No dry skin, No no complaints, No other, No polydypsia, No polyuria , No temp intolerance Past Medical History Medical History: no pertinent history, hypertension Past Surgical History Right cataract surgery. Family History Significant Family History: other (Mom has history of varicose veins ) Social History Denies tobacco, alcohol or illicit drug use. He does have some social alcohol use. Alcohol Use: occasionally Smoking Status: Never smoker Drug Use: none Exam/Review of Systems Vital Signs Vitals Vital Signs Date Time Temp Pulse Resp B/P Pulse Ox O2 Delivery O2 Flow Rate FiO2 12/31/16 07:50 98.5 76 18 142/78 95 12/30/16 04:33 Room Air Intake and Output 12/30/16 12/30/16 12/31/16 15:00 23:00 07:00 Intake Total 1206 ml 750 ml Output Total 985 ml Balance 1206 ml -235 ml Exam Constitutional: No alert, No distress, No frail, No non-verbal, No obese, No oriented, No other, No well developed Psych: No anxiety, No confusion, No depression, No nl mood/affect, No no complaints, No other, No suicidal Head: No atraumatic, No hematomas, No lacerations, No normocephalic, No other Eyes: No EOMI, No PERRL, No fundi, disc, No icteric, No nl conjunctiva, No nl lids, No nl sclera, No other ENMT: No intubated, No mucosa pink and moist, No nl external ears & nose, No nl lips & teeth, No nl nasal mucosa & septum, No other, No tympanic membranes Neck: No bruits, No jvd, No masses, No non-tender, No nuchal rigidity, No other , No supple, No thyromegaly Respiratory: No clear to auscultation, No congested cough, No crackles/rales, No diminished breath sounds, No intercostal retraction, No labored breathing, No normal air movement, No other, No respirations, No tactile fremitus, No wheezing Cardiovascular: No S3, No S4, No bruits, No diastolic murmur, No edema, No gallop, No irregular rhythm, No jugular venous distention (JVD), No murmurs/ extra sounds, No nl pulses, No other, No regular rate and rhythm, No rub, No systolic murmur Gastrointestinal: No ascites, No bowel sounds, No distended, No firm, No hepatomegaly, No mass, No nl liver, spleen, No non-tender, No other, No rebound or guarding, No soft, No splenomegaly, No surgical scars, No tender Musculoskeletal: swelling (RLE swelling, with slight tenderness at the calf) Extremities: calf tenderness, edema (RLE swelling, with slight tenderness at the calf) Neurological: METAL CUTTER II-XII intact, nl mental status, nl speech, nl strength Results Result Diagram: 12/31/1644512/31/16445 Results 24 hrs Laboratory Tests Test 12/31/16 04:46 White Blood Count 6.0 # Red Blood Count 4.21 L Hemoglobin 11.7 L Hematocrit 35.3 L Mean Corpuscular Volume 83.8 Mean Corpuscular Hemoglobin 27.8 L Mean Corpuscular Hemoglobin Concent 33.1 Red Cell Distribution Width 15.8 H Platelet Count 207 Mean Platelet Volume 10.7 H Neutrophils % 49.4 Lymphocytes % 32.5 Monocytes % 14.1 H Eosinophils % 3.5 Basophils % 0.3 Nucleated Red Blood Cells % 0.0 Neutrophils # 3.0 Lymphocytes # 2.0 Monocytes # 0.9 Eosinophils # 0.2 Basophils # 0.0 Nucleated Red Blood Cells # 0.0 Sodium Level 140 Potassium Level 3.6 Chloride Level 102 Carbon Dioxide Level 33 H Anion Gap 9 Blood Urea Nitrogen 11 Creatinine 0.75 Glucose Level 108 Calcium Level 9.1 Phosphorus Level 3.5 Magnesium Level 1.6 L Carcinoembryonic Antigen 0.6 Thyroid Stimulating Hormone (TSH) 0.540 Free Thyroxine 1.01 Medications Medications Current Medications Ondansetron HCl (Zofran Inj) 4 mg Q6H PRN IV NAUSEA AND/OR VOMITING; Start at 04:00 Acetaminophen (Tylenol Tab) 650 mg Q6H PRN PO PAIN LEVEL 1-3 OR FEVER; Start 12/30/16 at 04:00 Acetaminophen/ Hydrocodone Bitart ([place] (5/325)) 1 tab Q6H PRN PO MODERATE PAIN LEVEL 4-6 Last administered on 12/31/16 10:02; Admin Dose 1 TAB; Start 12/30/16 at 04:00 Docusate Sodium (Colace) 100 mg Q12H PRN PO CONSTIPATION; Start 12/30/16 at 04 :00 Bisacodyl (Dulcolax) 5 mg DAILY PRN PO CONSTIPATION; Start 12/30/16 at 04:00 Hydralazine HCl (Apresoline) 25 mg Q8H PRN PO ELEVATED SYSTOLIC BP; Start at 04:00 Enoxaparin Sodium (Lovenox) 75 mg Q12 SC Last administered on 12/31/16 10:00 ; Admin Dose 75 MG; Start 12/30/16 at 09:00 Lisinopril 5 mg 5 mg DAILY PO Last administered on 12/31/16 09:56; Admin Dose 5 MG; Start 12/31/16 at 09:00 Magnesium Sulfate (Magnesium Sulfate 2 Gm/50 ml) 50 ml @ 25 mls/hr ONCE IVPB ; Start 12/31/16 at 12:00; Stop 12/31/16 at 13:59 Docusate Sodium/ Ferrous Fumarate (Nadia-Sequels) 1 tab BID PO ; Start at 12:00 CAMILA BUENO MD Dec 31, 2016 12:31
[2016-12-31] MEDS: FERROUS FUMARATE (SR) TAB PO SCH ×2 (13:38→20:18)
[2016-12-31 15:04] VITALS: BP 148/78; RESP 18
[2016-12-31] MEDS: ENOXAPARIN 100 MG/ML SYG SC SCH (20:20)
[2016-12-31] MEDS: ENOXAPARIN 40 MG/0.4 ML SYG SC SCH (20:24)
[2016-12-31 20:30] VITALS: BP 161/77; RESP 19
[2017-01-01 01:02] LABS: ADD UMIC YES; UR ASCORBIC ACID NEGATIVE (NEGATIVE); UR BACTERIA FEW /HPF (NONE SEEN); UR BILIRUBIN (Dip) NEGATIVE (NEGATIVE); UR BLOOD (Dip) 1+ mg/dL (NEGATIVE); UR CLARITY CLEAR (CLEAR); UR COLOR YELLOW (YELLOW); UR GLUCOSE (Dip) NEGATIVE (NEGATIVE); UR KETONES (Dip) NEGATIVE (NEGATIVE); UR LEUKOCYTE ESTERASE (Dip) NEGATIVE Leu/ul (NEGATIVE); UR NITRITE (Dip) NEGATIVE (NEGATIVE); UR RBC 4 /HPF (0-5); UR SPECIFIC GRAVITY (Dip) 1.011 (1.003-1.030); UR TOTAL PROTEIN (Dip) NEGATIVE (NEGATIVE); UR UROBILINOGEN (Dip) 1+ mg/dL (NEGATIVE)
[2017-01-01 05:01] LABS: BASOPHILS % 0.3 % (0.0-2.0); EOSINOPHILS # 0.2 10^3/ul (0.0-0.5); EOSINOPHILS % 2.5 % (0.0-7.0); HEMATOCRIT 36.3 % (42.0-52.0); HEMOGLOBIN 11.7 g/dl (14.0-18.0); LYMPHOCYTES # 2.1 10^3/ul (0.8-2.9); MEAN CORPUSCULAR HEMOGLOBIN 27.1 pg (29.0-33.0); MEAN CORPUSCULAR HGB CONC 32.2 g/dl (32.0-37.0); MEAN PLATELET VOLUME 10.6 fl (7.4-10.4); MONOCYTE # 0.9 10^3/ul (0.3-0.9); MONOCYTES % 14.1 % (0.0-11.0); NEUTROPHIL # 3.2 10^3/ul (1.6-7.5); NEUTROPHILS % 49.9 % (39.0-77.0); PLATELET COUNT 215 10^3/UL (140-415); RED BLOOD COUNT 4.32 10^6/ul (4.70-6.10); RED CELL DISTRIBUTION WIDTH 15.6 % (11.5-14.5); WHITE BLOOD COUNT 6.5 10^3/ul (4.8-10.8)
[2017-01-01 05:34] LABS: CALCIUM 8.7 mg/dl (8.4-10.2); CREATININE 0.81 mg/dl (0.61-1.24); POTASSIUM 3.5 mmol/L (3.5-5.1)
[2017-01-01 05:38] LABS: MAGNESIUM 1.6 mg/dl (1.7-2.5); PHOSPHORUS 3.7 mg/dl (2.5-4.9)
[2017-01-01 07:36] VITALS: BP 138/75; RESP 18
[2017-01-01] MEDS: LISINOPRIL 5 MG TAB PO SCH (09:32)
[2017-01-01] MEDS: FERROUS FUMARATE (SR) TAB PO SCH ×2 (09:32→20:27)
[2017-01-01] MEDS: ENOXAPARIN 100 MG/ML SYG SC SCH ×2 (09:36→20:33)
[2017-01-01] MEDS: ENOXAPARIN 40 MG/0.4 ML SYG SC SCH ×2 (09:37→20:34)
[2017-01-01 15:14] LABS: RETICULOCYTE COUNT % 1.9 % (0.5-1.5)
--- NOTE | 2017-01-01 15:29 | PN ---
Date/Time of Note Date/Time of Note DATE: 01/01/17 TIME: 15:24 Assessment/Plan VTE Prophylaxis VTE Prophylaxis Intervention: SCD's Lines/Catheters [facility] Saline Lock Urinary Cath still in place: No Assessment/Plan Chief Complaint/Hosp Course Assessment and plan 1. DVT with thrombus extending from proximal superficial vein into the calf. It is noted that the DVTs were provoked. On therapeutic anticoagulation for now. Vascular surgeon and resource analyst is following. Patient's undergoing hypercoagulation workup at this time. Follow-up with results. 2. Hypertension. Continue antihypertensives and is as needed. 3. Prediabetes. Weight reduction was advised. On low carbohydrate diet. 4. Iron deficiency anemia. Continue iron. 5. Obesity. Weight reduction is advised. Disposition plan: Continue with anticoagulation. Discharge and cleared by consultants. Follow-up with hypercoagulability workup. Discussed plan of care with Dr. Hill Problems: Subjective 24 Hr Interval Summary Free Text/Dictation Reports having some pain on right calf. Reports that his less today. No other specific complaints. Denies any chest pain or shortness of breath Exam/Review of Systems Vital Signs Vitals Vital Signs Date Time Temp Pulse Resp B/P Pulse Ox O2 Delivery O2 Flow Rate FiO2 01/01/17 07:36 98.6 66 18 138/75 97 12/30/16 04:33 Room Air Intake and Output 12/31/16 12/31/16 01/01/17 15:00 23:00 07:00 Intake Total 1490 ml 1200 ml Balance 1490 ml 1200 ml Exam Constitutional: alert, obese, oriented Psych: nl mood/affect Head: normocephalic Eyes: nl conjunctiva Neck: non-tender, supple Respiratory: clear to auscultation Cardiovascular: regular rate and rhythm Gastrointestinal: non-tender, soft Musculoskeletal: other (tender on palpation of right calf) Neurological: FRAME HAND II-XII intact, nl mental status, nl speech Skin: nl turgor Results Result Diagram: 01/01/1742801/01/17428 Results 24 hrs Laboratory Tests Test 12/31/16 21:20 01/01/17 04:29 01/01/17 13:57 Stool Occult Blood NEGATIVE White Blood Count 6.5 Red Blood Count 4.32 L Hemoglobin 11.7 L Hematocrit 36.3 L Mean Corpuscular Volume 84.0 Mean Corpuscular Hemoglobin 27.1 L Mean Corpuscular Hemoglobin Concent 32.2 Red Cell Distribution Width 15.6 H Platelet Count 215 Mean Platelet Volume 10.6 H Neutrophils % 49.9 Lymphocytes % 33.0 Monocytes % 14.1 H Eosinophils % 2.5 Basophils % 0.3 Nucleated Red Blood Cells % 0.0 Neutrophils # 3.2 Lymphocytes # 2.1 Monocytes # 0.9 Eosinophils # 0.2 Basophils # 0.0 Nucleated Red Blood Cells # 0.0 Sodium Level 144 Potassium Level 3.5 Chloride Level 103 Carbon Dioxide Level 32 H Anion Gap 13 Blood Urea Nitrogen 11 Creatinine 0.81 Glucose Level 101 Calcium Level 8.7 Phosphorus Level 3.7 Magnesium Level 1.6 L Absolute Reticulocyte Count 0.087 Percent Reticulocyte Count 1.9 H Medications Medications Current Medications Ondansetron HCl (Zofran Inj) 4 mg Q6H PRN IV NAUSEA AND/OR VOMITING; Start at 04:00 Acetaminophen (Tylenol Tab) 650 mg Q6H PRN PO PAIN LEVEL 1-3 OR FEVER; Start 12/30/16 at 04:00 Acetaminophen/ Hydrocodone Bitart ([place] (5/325)) 1 tab Q6H PRN PO MODERATE PAIN LEVEL 4-6 Last administered on 12/31/16 10:02; Admin Dose 1 TAB; Start 12/30/16 at 04:00 Docusate Sodium (Colace) 100 mg Q12H PRN PO CONSTIPATION; Start 12/30/16 at 04 :00 Bisacodyl (Dulcolax) 5 mg DAILY PRN PO CONSTIPATION; Start 12/30/16 at 04:00 Hydralazine HCl (Apresoline) 25 mg Q8H PRN PO ELEVATED SYSTOLIC BP; Start at 04:00 Lisinopril (Zestril) 5 mg DAILY PO Last administered on 01/01/17 09:32; Admin Dose 5 MG; Start 12/31/16 at 09:00 Docusate Sodium/ Ferrous Fumarate (Nadia-Sequels) 1 tab BID PO Last administered on 01/01/17 09:32; Admin Dose 1 TAB; Start 12/31/16 at 12:00 Enoxaparin Sodium (Lovenox) 100 mg Q12 SC Last administered on 01/01/17 09:36 ; Admin Dose 100 MG; Start 12/31/16 at 21:00 Enoxaparin Sodium (Lovenox) 25 mg Q12 SC Last administered on 01/01/17 09:37 ; Admin Dose 25 MG; Start 12/31/16 at 21:00 EDUARDO CHIU Jan 01, 2017 15:29
[2017-01-01 16:21] VITALS: BP 113/82; RESP 2
[2017-01-01 16:47] LABS: FOLATE > 20.0 ng/ml (2.8-20.0)
--- NOTE | 2017-01-01 19:16 | CONS ---
Date/Time of Note Date/Time of Note DATE: 01/01/17 TIME: 19:07 Assessment/Plan Assessment/Plan Chief Complaint/Hosp Course unprovoked RLE DVT with thrombus extending from the proximal superficial vein into the calf on 12/29/16 doppler US. Normocytic anemia secondary iron deficiency , need to rule out other etiology Hypertension Prediabetes. Morbid obesity. Plans: Iron deficiency anemia, CEA normal, Stool OB negative, last colonoscopy was 2 years ago, recommend outpatient follow up with GI for further work up Continue ferrous supplement. Continue anticoagulation with lovenox. Discussed with patient regarding the oral anticoagulation options after discharge, risk and benefits were explained. Patient would like to start Xarelto or Eliquis instead of coumadin after discharge. unprovoked DVT . follow up Hereditarily hypercoagulable state work up were placed. Anemia work up Follow up Vascular surgeon Other management per PMD. Problems: Consultation Date/Type/Reason Admit Date/Time Dec 31, 2016 at 10:47 Initial Consult Date 12/31/16 Type of Consultation: Hematology and Oncology Reason for Consultation DVT, anemia 24 HR Interval Summary Free Text/Dictation decreased swelling and pain of the RLE Exam/Review of Systems Vital Signs Vitals Vital Signs Date Time Temp Pulse Resp B/P Pulse Ox O2 Delivery O2 Flow Rate FiO2 01/01/17 16:21 99.2 71 2 113/82 96 12/30/16 04:33 Room Air Intake and Output 12/31/16 12/31/16 01/01/17 15:00 23:00 07:00 Intake Total 1490 ml 1200 ml Balance 1490 ml 1200 ml Results Result Diagram: 01/01/17 0429 01/01/17 0429 Results 24 hrs Laboratory Tests Test 12/31/16 21:20 01/01/17 04:29 01/01/17 13:57 Stool Occult Blood NEGATIVE White Blood Count 6.5 Red Blood Count 4.32 L Hemoglobin 11.7 L Hematocrit 36.3 L Mean Corpuscular Volume 84.0 Mean Corpuscular Hemoglobin 27.1 L Mean Corpuscular Hemoglobin Concent 32.2 Red Cell Distribution Width 15.6 H Platelet Count 215 Mean Platelet Volume 10.6 H Neutrophils % 49.9 Lymphocytes % 33.0 Monocytes % 14.1 H Eosinophils % 2.5 Basophils % 0.3 Nucleated Red Blood Cells % 0.0 Neutrophils # 3.2 Lymphocytes # 2.1 Monocytes # 0.9 Eosinophils # 0.2 Basophils # 0.0 Nucleated Red Blood Cells # 0.0 Sodium Level 144 Potassium Level 3.5 Chloride Level 103 Carbon Dioxide Level 32 H Anion Gap 13 Blood Urea Nitrogen 11 Creatinine 0.81 Glucose Level 101 Calcium Level 8.7 Phosphorus Level 3.7 Magnesium Level 1.6 L Absolute Reticulocyte Count 0.087 Percent Reticulocyte Count 1.9 H Ferritin 14.0 Vitamin B12 Level 641 Folate > 20.0 H Medications Medications Current Medications Ondansetron HCl (Zofran Inj) 4 mg Q6H PRN IV NAUSEA AND/OR VOMITING; Start at 04:00 Acetaminophen (Tylenol Tab) 650 mg Q6H PRN PO PAIN LEVEL 1-3 OR FEVER; Start 12/30/16 at 04:00 Acetaminophen/ Hydrocodone Bitart ([place] (5/325)) 1 tab Q6H PRN PO MODERATE PAIN LEVEL 4-6 Last administered on 12/31/16 10:02; Admin Dose 1 TAB; Start 12/30/16 at 04:00 Docusate Sodium (Colace) 100 mg Q12H PRN PO CONSTIPATION; Start 12/30/16 at 04 :00 Bisacodyl (Dulcolax) 5 mg DAILY PRN PO CONSTIPATION; Start 12/30/16 at 04:00 Hydralazine HCl (Apresoline) 25 mg Q8H PRN PO ELEVATED SYSTOLIC BP; Start at 04:00 Lisinopril (Zestril) 5 mg DAILY PO Last administered on 01/01/17 09:32; Admin Dose 5 MG; Start 12/31/16 at 09:00 Docusate Sodium/ Ferrous Fumarate (Nadia-Sequels) 1 tab BID PO Last administered on 01/01/17 09:32; Admin Dose 1 TAB; Start 12/31/16 at 12:00 Enoxaparin Sodium (Lovenox) 100 mg Q12 SC Last administered on 01/01/17 09:36 ; Admin Dose 100 MG; Start 12/31/16 at 21:00 Enoxaparin Sodium (Lovenox) 25 mg Q12 SC Last administered on 01/01/17 09:37 ; Admin Dose 25 MG; Start 11/19/17 at 21:00 CAMILA BUENO MD Jan 01, 2017 19:16
[2017-01-01 20:10] VITALS: BP 143/81; RESP 18
[2017-01-02 04:03] VITALS: BP 136/66; RESP 20
[2017-01-02 07:37] VITALS: BP 141/73; RESP 17
[2017-01-02] MEDS: LISINOPRIL 5 MG TAB PO SCH (08:16)
[2017-01-02] MEDS: FERROUS FUMARATE (SR) TAB PO SCH ×2 (08:16→21:38)
[2017-01-02] MEDS: ENOXAPARIN 100 MG/ML SYG SC SCH ×2 (08:19→21:42)
[2017-01-02] MEDS: ENOXAPARIN 40 MG/0.4 ML SYG SC SCH ×2 (08:20→21:43)
[2017-01-02] MEDS ORDERED: LISI-313 PO (11:35)
[2017-01-02] MEDS ORDERED: HYDR-906 PO (11:35)
[2017-01-02] MEDS ORDERED: RIVA15TA PO (11:35)
[2017-01-02] MEDS ORDERED: RIVA20TA PO (11:35)
[2017-01-02] MEDS ORDERED: FERR1TAB14 PO (11:35)
--- NOTE | 2017-01-02 11:40 | PDOCDIS ---
Discharge Instructions DIAGNOSIS Discharge Diagnosis 1. DVT with thrombus extending from proximal superficial vein into the calf on right side 2. Hypertension. 3. Prediabetes. 4. Iron deficiency anemia. 5. Obesity HOME CARE INSTRUCTIONS: Diet Instructions: Low Fat /CholesterolSpecial Diet: 1800 calorie ACTIVITY: Activity Restrictions: Rest between Activity FOLLOW UP/APPOINTMENTS Follow-up Plan 1. Follow up with Dr. Lorenza Kramer in one week 2. Follow up with your primary care provider in 1-2 weeks EDUARDO CHIU Jan 02, 2017 11:40
[2017-01-02 13:14] LABS: CALCIUM 9.4 mg/dl (8.4-10.2); CREATININE 0.82 mg/dl (0.61-1.24); MAGNESIUM 1.4 mg/dl (1.7-2.5); POTASSIUM 3.6 mmol/L (3.5-5.1)
[2017-01-02 15:07] VITALS: BP 135/79; RESP 20
[2017-01-02 20:00] VITALS: BP 140/71; RESP 20
--- NOTE | 2017-01-02 22:45 | PN ---
Date/Time of Note Date/Time of Note DATE: 01/02/17 TIME: 22:43 Assessment/Plan Lines/Catheters IV Catheter Type (from [facility]): Saline Lock Hernandes in Place (from [facility]): No Assessment/Plan Chief Complaint/Hosp Course -Right lower extremity deep vein thrombosis of the superficial femoral vein and his tibial veins: It seems the patient has developed an unprovoked event of lower extremity deep vein thrombosis. This seems to be requiring further workup as the patient does have some history of varicose veins and swelling from his mother's side that could suggest possible thrombotic syndrome. Further , as no real indication of a provoked event, would recommend for the patient to have hypercoagulable workup done. Elena baxter also would like to rule out any sort of a neoplasm that the patient may have gone undiagnosed. He did mention that he did have a colonoscopy about 2 years ago, which was negative. -Appreciate hematology consult for further evaluation. 2. Continue with anticoagulation, Lovenox b.i.d. 3. Optimize vascular status (blood pressure meds, diet, nutrition, exercise, sugar control, antiplatelets). 4. Discussed with the patient about diet, nutrition, his BMI and weight loss program and appropriate information was provided. 5. Discussed findings, plan and management with the patient and at the bedside with a certified sighter and they understand. Thank you for allowing us to partake in the care of your patient. Please call with any questions. Problems: Subjective 24 Hr Interval Summary no new vascular events overnight, RLE edema Exam/Review of Systems Vital Signs Vitals Vital Signs Date Time Temp Pulse Resp B/P Pulse Ox O2 Delivery O2 Flow Rate FiO2 01/02/17 20:00 98.6 69 20 140/71 93 12/30/16 04:33 Room Air Intake and Output 01/01/17 01/01/17 01/02/17 14:59 22:59 06:59 Intake Total 1400 ml 750 ml Balance 1400 ml 750 ml Exam Free Text/Dictation GENERAL: Alert and oriented x3, PULMONARY: Clear to auscultation bilaterally CARDIOVASCULAR: S1, S2 present ABDOMEN: Soft, nontender, nondistended. Bowel sounds positive. Large truncal obesity. RIGHT LOWER EXTREMITY: Palpable femoral pulse, faint pedal pulse. Motor, sensory intact. Cap refill 2 to 3 seconds. Edema from the ankle all the way up to the knee of about 2+ improving LEFT LOWER EXTREMITY: Palpable femoral pulse, palpable pedal pulse. Motor, sensory intact. Cap refill 2 to 3 seconds. BILATERAL LOWER EXTREMITIES: Presence of bilateral lower legs varicose veins. Results Result Diagram: 01/01/17 0429 01/02/17 1206 JAMES DEWEY MD Jan 02, 2017 22:45
[2017-01-03 12:38] LABS: HOMOCYSTEINE - CARDIOVASCULAR 7.8 umol/L (<11.4)
[2017-01-03 13:22] LABS: PROTEIN C 81 % normal (70-180)
== END 2017-01-03 | disposition home or self-care (01) | DRG 300 ==
LOC: FTE 20:27 → MS1 12-30 03:04 → OBSVTOIN 12-31 10:47
PROVIDERS: ADMIT Family Medicine; ATTEND Family Medicine
DX: I82.411 Acute embolism and thrombosis of right femoral vein (principal); Z68.42 Body mass index [BMI] 45.0-49.9, adult; I10 Essential (primary) hypertension; I82.441 Acute embolism and thrombosis of right tibial vein; E66.01 Morbid (severe) obesity due to excess calories; R73.03 Prediabetes; D50.9 Iron deficiency anemia, unspecified
CPT/HCPCS: 80048; 80053; 80061; 81001; 81240; 82270; 82378; 82607; 82728; 82746; 83036; 83090; 83540; 83735; 83880; 83890; 84100; 84439; 84443; 84484; 85025; 85045; 85300; 85302; 85305; 85378; 85610; 85613; 85730; 86146; 86147; 93005; 93971; 96372; G0378; J1650; J3475

== ENCOUNTER → 2017-05-17 | Outpatient (CLI) | END | disposition home or self-care (01) ==

== ENCOUNTER 2017-06-08 10:51 | Emergency (ER) | END 2017-06-08 13:05 | disposition home or self-care (01) ==

== ENCOUNTER → 2017-10-23 | Outpatient (CLI) | END | disposition home or self-care (01) ==

== ENCOUNTER 2017-10-27 14:55 | Emergency (ER) | END 2017-10-27 17:47 | disposition home or self-care (01) ==

== ENCOUNTER 2018-03-07 13:02 | Emergency (ER) | payer BC ==
[~2018-03-07] VITALS: Wt 124.8 kg
[~2018-03-07 13:02] MED LIST changes: +BISM262O23 PO; +FERR1TAB14 PO; +HYDR-4011 PO; +LISI-313 PO; +RIVA15TA PO; +RIVA20TA5 PO; +TRAM50TA2 PO
[2018-03-07 13:10] VITALS: BP 156/83; PULSE 74; RESP 22
[2018-03-07] MEDS ORDERED: D-ME473S2 PO (14:10)
[2018-03-07] MEDS ORDERED: BENZ-6 PO (14:10)
[2018-03-07] MEDS ORDERED: IBUP800T48 PO (14:10)
[2018-03-07] MEDS ORDERED: ACET500C5 PO (14:10)
--- NOTE | 2018-03-07 15:55 | ERD ---
ER Documentation Chief Complaint Chief Complaint 3d of: cough, fever, nausea. no relief w theraflu HPI 68-year-old male presenting with cough and fever with nausea. Patient states is been taking TheraFlu. The symptoms have been going on for the last 4 days. He denies any vomiting but does have nausea. He describes his cough is dry. Denies sick contacts. Medical history is hypertension. NKDA. Surgical history hernia repair. Social history denies ROS All systems reviewed and are negative except as per history of present illness. Medications Home Meds Active Scripts Dextromethorphan Hb-Promethazine Hcl* (Promethazine DM* Syrup) 473 Ml Syrup, 10 ML PO Q6 PRN for COUGH, #100 ML Prov:POLINA AHMADI PA-C 03/07/18 Benzonatate* (Tessalon Perle*) 100 Mg Capsule, 100 MG PO Q8H PRN for COUGH, #30 CAP Prov:POLINA AHMADI PA-C 03/07/18 Acetaminophen* (Tylophen*) 500 Mg Capsule, 2 CAP PO Q8H PRN for PAIN AND OR ELEVATED TEMP, #20 CAP Prov:POLINA AHMADI PA-C 03/07/18 Ibuprofen* (Motrin*) 800 Mg Tab, 800 MG PO Q6, #30 TAB Prov:POLINA AHMADI PA-C 03/07/18 Tramadol HCl (Tramadol HCl) 50 Mg Tablet, 50 MG PO Q6 PRN for PAIN, #20 TAB Prov:SANDRITA CID PA-C 10/27/17 Bismuth Subsalicylate* (Pepto-Bismol*) 262 Mg/15 Ml Oral.susp, 30 ML PO Q3H PRN for DIARRHEA for 5 Days, ML DO NOT EXCEED 8 DOSES (240 ML) IN 24 HRS Prov:TATIANA IRWIN MD 06/08/17 Hydrocodone/Acetaminophen ([place] 5-325 Tablet) 1 Each Tablet, 1 EACH PO Q4, #30 TAB Prov:EDUARDO CHIU 01/02/17 Lisinopril* (Lisinopril*) 5 Mg Tablet, 5 MG PO DAILY, #30 TAB Prov:EDUARDO CHIU 01/02/17 Rivaroxaban* (Xarelto*) 20 Mg Tablet, 20 MG PO WITH DINNER, #60 TAB 1. take 15mg by mouth twice a day for 21 days. 2. then take 20mg by mouth once a day after Prov:EDUARDO CHIU 01/02/17 Rivaroxaban* (Xarelto*) 15 Mg Tablet, 15 MG PO BID, #42 TAB 1. take 15mg by mouth twice a day for 21 days. 2. then take 20mg by mouth once a day after. Prov:EDUARDO CHIU 01/02/17 Ferrous Fumarate/Ascorbic Acid (Nadia-Sequels 65-25 mg Caplet) 1 Each Tablet.er, 1 TAB PO BID, #60 TAB Prov:EDUARDO CHIU 01/02/17 Reported Medications Naproxen/Esomeprazole Mag (Vimovo 500-20 Mg Tablet) 1 Each Tbmp.12hr, 1 EACH PO NEEDED 06/16/11 [Arthitis Med] No Conflict Check 05/03/11 Multivits W-Fe,Other Min ([place] For Seniors) 1 Tab Tablet, 1 TAB PO DAILY 05/03/11 Vitamin E Acetate (E-400) 400 Unit Capsule, 400 UNIT PO DAILY 05/03/11 Vitamin B Complex (B Complex) 1 Cap Capsule, 1 CAP PO DAILY 05/03/11 Vit A/Vit C/Vit E/Zinc/Copper (Preservision Areds Softgel) 1 Cap Capsule, 1 CAP PO 05/03/11 Allergies Allergies: Coded Allergies: No Known Allergies (Verified Allergy, Unknown, 03/07/18) PMhx/Soc History of Surgery: Yes (RIGHT EYE CATARACT , UMBILICAL HERNIA SX) Anesthesia Reaction: No Hx Neurological Disorder: No Hx Respiratory Disorders: No Hx Cardiac Disorders: No Hx Psychiatric Problems: No Hx Miscellaneous Medical Probl: No Hx Alcohol Use: Yes Hx Substance Use: No Hx Tobacco Use: No Smoking Status: Never smoker FmHx Family History: No diabetes, No coronary disease, No other Physical Exam Vitals Vital Signs Date Temp Pulse Resp B/P (MAP) Pulse Ox O2 O2 Flow FiO2 Time Delivery Rate 03/07/18 98.8 74 22 156/83 95 13:10 (107) Physical Exam GENERAL: The patient is well-appearing, well-nourished, in no acute distress HEENT: Atraumatic. Conjunctivae are pink. Pupils equal, round, and reactive to light. There is no scleral icterus. Tympanic membranes clear bilaterally. Oropharynx clear. No nystagmus or photophobia. CHEST: Clear to auscultation bilaterally. There are no rales, wheezes or rhon chi. HEART: Regular rate and rhythm. No murmurs, clicks, rubs or gallops. No S3 or S4. ABDOMEN:Soft, nontender and nondistended. Good bowel sounds. No rebound or guarding. No gross peritonitis. No gross organomegaly or masses. Procedures/MDM MDM: 68-year-old male presenting complaints of URI symptoms. I have low suspicion for pneumonia. I have low suspicion for bacterial HEENT infection. Patient is discharged stricter precautions and told to follow-up with primary care within 1-2 days for close evaluation. Patient is told if symptoms change or worsen to return immediately to the ER. All questions answered discharge Departure Diagnosis: Primary Impression: Upper respiratory infection Condition: Stable Patient Instructions: Uri, Viral, No Abx (Adult) Referrals: [facility] YOU HAVE RECEIVED A MEDICAL SCREENING EXAM AND THE RESULTS INDICATE THAT YOU DO NOT HAVE A CONDITION THAT REQUIRES URGENT TREATMENT IN THE EMERGENCY DEPARTMENT. FURTHER EVALUATION AND TREATMENT OF YOUR CONDITION CAN WAIT UNTIL YOU ARE SEEN IN YOUR DOCTORS OFFICE WITHIN THE NEXT 1-2 DAYS. IT IS YOUR RESPONSIBILITY TO MAKE AN APPOINTMENT FOR FOLOW-UP CARE. IF YOU HAVE A PRIMARY DOCTOR --you should call your primary doctor and schedule an appointment IF YOU DO NOT HAVE A PRIMARY DOCTOR YOU CAN CALL OUR PHYSICIAN REFERRAL HOTLINE AT IF YOU CAN NOT AFFORD TO SEE A PHYSICIAN YOU CAN CHOSE FROM THE FOLLOWING [facility] [id number] [facility] [address] [facility] [address] [facility] [address] [facility] [address] [facility] [facility]. [address] Additional Instructions: FOLLOW UP WITH YOUR PRIMARY CARE PHYSICIAN TOMORROW.Return to this facility if you are not improving as expected. POLINA AHMADI PA-C Mar 07, 2018 15:55
== END 2018-03-07 14:55 | disposition home or self-care (01) ==
LOC: FTE 13:02
DX: J06.9 Acute upper respiratory infection, unspecified (principal)
CPT/HCPCS: 99283

== ENCOUNTER → 2018-05-16 | Outpatient (CLI) | payer BC ==
[~2018-05-16] MED LIST changes: +ACET500C5 PO; +BENZ-6 PO; +D-ME473S2 PO; +IBUP800T48 PO
== END | disposition home or self-care (01) ==
LOC: LAB 09:15
PROVIDERS: ATTEND General Practice
DX: Z00.00 Encounter for general adult medical examination without abnormal findings (principal)
CPT/HCPCS: 80053; 80061; 81001; 84153; 84154; 84436; 84443; 84560; 85025

== ENCOUNTER 2018-11-19 08:00 | Outpatient (CLI) | payer BC ==
[~2018-11-19 08:00] MED LIST changes: +LISI10TA2 PO
== END 2018-11-19 12:00 | disposition home or self-care (01) ==
LOC: LAB 08:00
PROVIDERS: ATTEND Family Medicine
DX: Z01.818 Encounter for other preprocedural examination (principal)
CPT/HCPCS: 71046; 81001; 85025; 85610; 85730; 93005